=== PATIENT | female | born 1965 | race Caucasian/White ===

== ENCOUNTER → 2019-03-21 08:40 | Outpatient (CLI) | payer BC ==
[~2019-03-21 08:40] MED LIST: ESTRACE 0.5 MG0.5 MG PO; LEVOTHYROXINE75 MCG PO; MELATONIN10 M1 PO; RESTORIL15 MG PO; VITAMIN B-12250 MC3 PO; VITAMIN D3400 UNI1 PO; VITAMIN E200 UNI1 PO; XANAX0.25 MG PO; ZYRTEC10 MG PO
[2019-04-01 09:25] VITALS: BMI 23.0
== END | disposition home or self-care (01) ==
LOC: D.HCCARDIO 08:40
PROVIDERS: ATTEND Internal Medicine Cardiovascular Disease
DX: I20.9 Angina pectoris, unspecified (principal)

== ENCOUNTER 2019-04-01 08:25 | Outpatient (CLI) | payer BC ==
[~2019-04-01] VITALS: Ht 165.1 cm; Wt 62.7 kg
--- NOTE | ~2019-04-01 | HEMODYNAMI ---
PATIENT:JANAY RCAFT MEDICAL RECORD: [id number] : 61 LOCATION:D.CAT ADMISSION DATE: 04/01/19 Generatedon:04/01/201910:30 Patient name: JANAY CRAFT Patient #: [id number] SSN: [id number] : 1965 Date of study: 04/01/2019 Page: Of Hemodynamic Procedure Report Patient Data Patient Demographics Procedure consent was obtained First Name: JANAY Gender: Female Last Name: VENANCIO : 1965 Patient #: [id number] Age: 54 year(s) Race: SSN: [id number] Additional ID: [id number] Contact details [address]: [address] [place] [address] State: [place] City: [place] Zip code: [address] Past Medical History Allergies: No known allergies Admission Admission Data Admission Date: 04/01/2019 Admission Time: 8:25 Arrival Date: 04/01/2019 Arrival Time: 0:00 Insurance Payor: Private health insurance [facility] #: [id number] Height (in.): 64.96 BSA: 1.69 (m2) Height (cm.): 165 BMI: 23.14 (kg/m2) Weight (lbs.): 138.89 Weight (kg.): 63 Lab Results Lab Result Date: 04/01/2019 Lab Result Time: 0:00 Biochemistry Name Units Result Min Max BUN mg/dl 13 --(--*-)-- 7 18 Creatinine mg/dl 0.9 --(-*--)-- 0.6 1.3 eGFR ml/min 69 *-(----)-- 90 120 NONAFRICAN CBC Name Units Result Min Max Hemoglobin g/dl 13.4 -*(----)-- 13.5 17.5 Procedure Procedure Types Cath Procedure Diagnostic Procedure LHC LHC w/Coronaries Procedure Description Procedure Date Procedure Date: 04/01/2019 Procedure Start Time: 10:20 Procedure End Time: 10:28 Procedure Staff Name Function Allen Meek MD Performing Physician Sapphire Vasquez RT Monitor Leilani Wilder RT Monitor Aleksandra Hu RN Nurse Olivia Mcclure RT Scrub Indication Angina Procedure Data Cath Procedure Fluoroscopy Diagnostic fluoroscopy Total fluoroscopy Time: 1 time: 1 min min Diagnostic fluoroscopy Total fluoroscopy dose: 137 dose: 137 mGy mGy Contrast Material Contrast Material Type Amount (ml) Isovue 300 33 Entry Location Entry Primary Successful Side Size Upsize Upsize Entry Closure Root ccessful Closure Location (Fr) 1 (Fr) 2 (Fr) Remarks Device Remarks Radial Right 6 Fr Mechanical artery Short Compression Estimated blood loss: 5 ml Diagnostic catheters Device Type Used For End Catheter Placement DIAGNOSTIC [place] 110cm 5 Procedure Fr catheter ([id number]) Procedure Complications No complications Procedure Medications Medication Administration Route Dosage Oxygen etCO2 Nasal cannula 2 l/min Lidocaine 2% added to field 20 Heparin Flush Bag added to field 2 bags (1000units/500ml NS) 0.9% NaCl I.V. 100 ml/hr Versed I.V. 2 mg Fentanyl I.V. 100 mcg Radial Cocktail I.A. 1 syringe (Verapamil 2mg/Nitro 400mcg/Heparin 1500units) Versed I.V. 1 mg Versed I.V. 1 mg Fentanyl I.V. 50 mcg Fentanyl I.V. 50 mcg Hemodynamics Rest BSA: 1.69 (m2) HGB: 13.4 (g/dl) O2 Consumption: Estimated: 174.03 (ml/min) O2 Co nsumption indexed: Estimated:102.98 (ml/min/m) Heart Rate: 89 (bpm) Snapshots Pre Cath Intra NCS Post Cath Vital Signs Time Heart Resp SPO2 etCO2 NIBP (mmHg) Rhythm Pain Status Sedation Rate (ipm) (%) (mmHg) Level (bpm) 9:56:00 70 16 98 0 123/80(109) NSR 4 (11) , 10(A) Distressing 10:00:12 78 18 100 39.8 120/69(109) NSR 4 (11) , 10(A) Distressing 10:04:20 85 15 95 0.7 109/75(93) NSR 4 (11) , 10(A) Distressing 10:08:25 85 14 96 26.2 113/69(89) NSR 4 (11) , 10(A) Distressing 10:12:35 81 19 96 44.3 119/63(84) NSR 4 (11) , 10(A) Distressing 10:16:47 82 18 97 3 106/60(80) NSR 0 (11) , No 10(A) pain 10:20:55 81 14 96 46.6 102/60(82) NSR 0 (11) , No 9(A) pain 10:25:03 86 14 96 2.2 98/57(74) NSR 0 (11) , No 9(A) pain 10:28:50 79 16 96 46.6 96/53(71) NSR 0 (11) , No 10(A) pain Medications Time Medication Route Dose Verified Delivered Reason Notes Effectiveness by by 9:59:13 Oxygen etCO2 2 l/min [place] used for Nasal Gaviota Hu RN procedure cannula 9:59:19 Lidocaine 2% added 20ml [place] for local to vial Gaviota Meek MD anesthetic field 9:59:25 Heparin Flush added 2 bags [place] used for Bag to Gaviota Meek MD procedure (1000units/500ml field NS) 9:59:34 0.9% NaCl I.V. 100 [place] Per ml/hr Gaviota Hu RN physician 10:15:55 Versed I.V. 2 mg [place] for sedation Gaviota Hu RN 10:15:59 Fentanyl I.V. 100 mcg [place] for sedation Gaviota Hu RN 10:18:01 Versed I.V. 1 mg [place] for sedation Gaviota Meek MD 10:18:06 Fentanyl I.V. 50 mcg [place] for sedation Gaviota Meek MD 10:22:37 Radial Cocktail I.A. 1 [place] for (Verapamil syringe Gaviota Meek MD vasodilation 2mg/Nitro 400mcg/Heparin 1500units) 10:23:01 Versed I.V. 1 mg [place] for sedation Gaviota Meek MD 10:23:07 Fentanyl I.V. 50 mcg [place] for sedation Gaviota Meek MD Procedure Log Time Note 9:41:54 Procedure Status Elective Heart Cath (OP). 9:42:02 Aleksandra Hu RN sent for patient. Start room use. 9:42:06 Time tracking: Regular hours (M-F 7:00 - 5:00) 9:42:14 Plan of Care:Hemodynamics will remain stable., Cardiac rhythm will remain stable., Comfort level will be maintained., Respiratory function will remain adequate., Patient/ family verbilizes understanding of procedure., Procedure tolerated without complication., Recovers from procedure without complications.. 9:44:28 ACC Patient presents with Stable Angina CCS Anginal Class 0--No symptoms, no angina. 9:49:18 Patient received from Pre/Post Procedure Room to CCL 1 Alert and oriented. Tansferred to table in Supine position. 9:50:47 Signed procedure consent form obtained from patient. 9:50:49 Warm blankets applied, and nagi hugger turned on for patient comfort. 9:50:51 Correct patient and procedure confirmed by team. 9:50:52 ECG and BP/O2 sat monitors applied to patient. 9:51:38 Diagnostic Cath Status : Elective 9:51:55 Indication : Angina 9:52:54 Arrival Date: 04/01/2019 12:00:00 AM 9:53:18 Insurance Payor : Private health insurance 9:53:23 Patient Height : 64.96 inches 9:53:28 Patient Weight : 138.89 lbs 9:54:26 Lab Result : eGFR NONAFRICAN 69 ml/min 9:54:26 Lab Result : Creatinine 0.9 mg/dl 9:54:26 Lab Result : BUN 13 mg/dl 9:54:26 Lab Result : Hemoglobin 13.4 g/dl 9:54:56 Vital chart was started 9:54:57 Baseline sample Acquired. 9:55:09 Rhythm: sinus rhythm 9:55:12 Full Disclosure recording started 9:55:31 H&P Date Dictated: 04/01/2019 H&P Addendum completed by physician on da y of procedure. (MUST COMPLETE FOR ALL OUTPATIENTS), New H&P dictated by physician.. 9:55:33 Pre-procedure instructions explained to patient. 9:55:34 Pre-op teaching completed and patient verbalized understanding. 9:55:41 Family in waiting room. 9:55:46 Patient NPO since Midnight. 9:56:00 Patient pain scale 4/10 ?. 9:56:13 IV patent on arrival in right antecubital with 0.9% NaCl at KVO. 9:56:28 Patient allergic to No known allergies 9:56:33 Is the patient allergic to Iodine/contrast media? No. 9:56:42 Is patient on blood thinner?No 9:56:52 Patient diabetic? No. 9:57:02 Patient not . Patient is over age 55. 9:57:04 - 9:57:05 ----Pre-sedation anethsthesia assessment.---- 9:57:10 Previous problem with sedation/anesthesia? No ? 9:57:13 Snore? Yes 9:57:16 Sleep apnea? No 9:57:18 Deviated septum? No 9:57:19 Opens mouth fully? Yes 9:57:21 Sticks out tongue? Yes 9:57:25 Airway obstruction? No ? 9:57:29 Dentures? No ? 9:57:46 Pre procedure: right dorsailis pedis pulse 1+ Palpable, but thready & weak; easily obliterated 9:57:51 Pre procedure: left dorsailis pedis pulse 1+ Palpable, but thready & weak; easily obliterated 9:57:57 Modified To's test Ulnar < 7 seconds 9:58:09 Lab results completed and on chart. 9:58:14 Right Radial & Right Groin area was prepped with chlora-prep and draped in sterile fashion 9:58:17 Alarms reviewed by R. N. 9:58:18 Sharps counted by scrub and verified by R.N. 9:59:13 Oxygen 2 l/min etCO2 Nasal cannula was administered by Aleksandra Hu RN; used for procedure; Verbal order read back and verified. 9:59:19 Lidocaine 2% 20ml vial added to field was administered by Allen Meek MD; for local anesthetic; Verbal order read back and verified. 9:59:25 Heparin Flush Bag (1000units/500ml NS) 2 bags added to field was administered by Allen Meek MD; used for procedure; Verbal order read back and verified. 9:59:34 0.9% NaCl 100 ml/hr I.V. was administered by Aleksandra Hu RN; Per physician; Verbal order read back and verified. 10:00:54 Use device set Radial Dx or PCI 10:00:56 ACIST Syringe (14694) opened to sterile field. 10:00:57 Medline Cath Pack ([id number]) opened to sterile field. 10:00:58 Bag Decanter (2002S) opened to sterile field. 10:00:58 ACIST Hand Control (96322) opened to sterile field. 10:00:59 ACIST Manifold (39299) opened to sterile field. 10:01:00 Tegaderm 4 x 4 (1626W) opened to sterile field. 10:01:02 MBrace Wrist Support ([id number]) opened to sterile field. 10:01:04 EMERALD Guide Wire (734-669) opened to sterile field. 10:01:06 SHEATH 6FR RAIN (2857272) opened to sterile field. 10:05:17 ACCPatient has been prescribed/administered the following anti-anginal medication within the last 2 weeks: None 10:05:27 Baseline sample Acquired. 10:07:43 Zero performed for pressure channel P1 10:15:21 Physician arrived 10:15:22 --------ALL STOP TIME OUT------ 10:15:23 Final Timeout: patient, procedure, and site verified with staff and physician. All members of the team are in agreement. 10:15:27 Right Radial & Right Groin site verified by team. 10:15:33 Fire Safety Assessment: A--An alcohol-based skin anteseptic being used preoperatively., C--Open oxygen or nitrous oxide is being used., D--An ESU, laser, or fiber-optic light is being used. 10:15:40 Physical assessment completed. ASA score P 2 - A patient with mild systemic disease as per Allen Meek MD. 10:15:51 2) 60-89 Mildly reduced kidney function, and other findings (as for stage 1) point to kidney disease. 10:15:55 Versed 2 mg I.V. was administered by Aleksandra Hu RN; for sedation; Verbal order read back and verified. 10:15:59 Fentanyl 100 mcg I.V. was administered by Aleksandra Hu RN; for sedation; Verbal order read back and verified. 10:15:59 Maximum allowable contrast dose (3.7 X eGFR X 0.75)191 ml. 10:16:05 Sedation plan: IV Moderate Sedation Medication:Versed, Fentanyl 10:18:01 Versed 1 mg I.V. was administered by Allen Meek MD; for sedation; Verbal order read back and verified. 10:18:06 Fentanyl 50 mcg I.V. was administered by Allen Meek MD; for sedation ; Verbal order read back and verified. 10:20:00 Zero performed for pressure channel P1 10:20:13 Procedure started. 10::22 Local anesthetic to right radial artery with Lidocaine 2% by Allen Meek MD.INITIAL ACCESS ONLY 10:21:18 A 6 Fr Short sheath was inserted into the Right Radial artery 10:21:31 A DIAGNOSTIC [place] 110cm 5 Fr catheter (997308) was advanced over the wire and used for Procedure. 10:22:37 Radial Cocktail (Verapamil 2mg/Nitro 400mcg/Heparin 1500units) 1 syring e I.A. was administered by Allne Meek MD; for vasodilation; Verbal order read back and verified. 10:22:40 LV gram done using LENNON 10::45 Injector settings: Ml/sec: 5, Volume: 15, 10:23:01 Versed 1 mg I.V. was administered by Allen Meek MD; for sedation; Verbal order read back and verified. 10:23:04 EF : 55 % 10:23:07 Fentanyl 50 mcg I.V. was administered by Allen Meek MD; for sedation ; Verbal order read back and verified. 10:23:08 LCA angiography performed. 10:24:04 RCA angiography performed. 10:24:13 Injector settings: Ml/sec: 3, Volume: 6, 10:24:32 ACCDominant side:Right 10:24:43 Catheter removed. 10:24:46 ZEPHYR REGULAR TR BAND (651185) opened to sterile field. 10::59 Procedure ended.(Physican Out) 10:25:14 Sheath removed intact; hemostasis achieved with Mechanical Compression to the Right Radial artery. :: Fluoroscopy time 01.00 minutes. ::32 Fluoroscopy dose: 137 mGy 10:25:32 Flurop Dose total: 137 10:25:41 Dose Area Product 7075 mGy/cm. 10:25:47 Contrast amount:Isovue 300 33ml. 10:25:50 Maximum allowable dose exceeded? No. 10:25:52 Sharps counted by scrub and verified by R.N. 10:26:00 [place] band inflated with 5cc of air. 10:26:03 Insertion/operative site no bleeding no hematoma. 10:26:08 Post Procedure Pulses reassessed and unchanged 10:26:14 Post-procedure physical assessment completed. ASA score P 2 - A patient with mild systemic disease as per Allen Meek MD. 10:26:18 Post procedure rhythm: unchanged. 10:26:23 Estimated blood loss: 5 ml 10:26:26 Post procedure instruction explained to patient.Patient verbalizes understanding. 10:26:27 Patient needs reinforcement of post procedure teaching. 10:27:28 Procedure and supply charges have been captured, reviewed, submitted an d are correct. 10:28:14 Procedure Complication : No complications 10:28:17 Vital chart was stopped 10:28:21 [facility] Findings: mild to moderate CAD (<70%) 10:28:46 Operative report dictated upon procedure completion. 10:28:47 See physician's report for complete and final results. 10:28:49 Report given to Pre/Post Procedure Room. 10:28:54 Patient transfered to Pre/Post Procedure Room with Stretcher. 10:28:57 Procedure ended. 10:28:57 Full Disclosure recording stopped 10:29:02 End room use (Document Last) Device Usage Item Name Manufacture Quantity Catalog Hospital Part Current [facility] l Lot# / Number Charge Number Stock Stock Serial# Code ACIST Acist 1 49080 [id number] [id number] 238138 20 Syringe Medical (20621) Systems Inc Medline Medline 1 [id number] 71587 183266 5 Cath Pack ([id number]) Bag Microtek 1 [id number] 56034 281882 5 Decanter Medical Inc. () ACIST Hand Acist 1 75805 661267 627362 458038 5 Control Medical (26274) Systems Inc ACIST Acist 1 81441 866020 382172 274160 5 Manifold Medical (20871) Systems Inc Tegaderm 4 3M 1 1626W 216806 027937 639658 5 x 4 (1626W) MBrace Advanced 1 [id number] 529232 07977 004709 5 Wrist Vascular Support Dynamics ([id number]) EMERALD Cardinal 1 502-455 770313 600998 021255 5 Guide Wire Health (502455) SHEATH 6FR Cardinal 1 [id number] 604883 7133707 944155 5 RAIN Health (4178057) DIAGNOSTIC Terumo 1 40-8563 126485 049399 431026 5 [place] 110cm 5 Fr catheter (035653) ZEPHYR Cardinal 1 698742 459999 6926369 494936 5 REGULAR TR Health BAND (486406) Signature Audit [place] Stage Time Signature Unsigned Intra-Procedure 04/01/2019 Leilani 10:29:28 AM Meño RT(R) (CV) Intra-Procedure 04/01/2019 Aleksandra Hu RN 10:29:55 AM Intra-Procedure 04/01/2019 Allen Meek 10:30:34 AM [id number] [place] [address]
[2019-04-01] MEDS ORDERED: LEVOTHYROXINE75 MCG PO (08:43)
[2019-04-01] MEDS ORDERED: XANAX0.25 MG PO (08:43)
[2019-04-01] MEDS ORDERED: VITAMIN D3400 UNI1 PO (08:44)
[2019-04-01] MEDS ORDERED: ZYRTEC10 MG PO (08:44)
[2019-04-01] MEDS ORDERED: VITAMIN E200 UNI1 PO (08:44)
[2019-04-01] MEDS ORDERED: ESTRACE 0.5 MG0.5 MG PO (08:45)
[2019-04-01] MEDS ORDERED: VITAMIN B-12250 MC3 PO (08:45)
[2019-04-01] MEDS ORDERED: MELATONIN10 M1 PO (08:45)
[2019-04-01] MEDS ORDERED: RESTORIL15 MG PO (08:46)
[2019-04-01 09:17] LABS: BASOPHILS 0.7 % (0-2); EOSINOPHILS 3.4 % (0-7); HEMATOCRIT 40.8 % (36.0-48.0); HEMOGLOBIN 13.4 g/dL (12-16); IMMATURE GRANULOCYTES 0.3 % (0-5); LYMPHOCYTES 21.9 % (15-50); MCH 28.8 pg (26.0-34.0); MCHC 32.8 g/dL (31.0-37.0); MCV 87.7 fL (80.0-100.0); MEAN PLATELET VOLUME 10.1 fL (7.4-10.4); MONOCYTES 8.9 % (2-11); NEUTROPHILS 64.8 % (40-80); PLATELET COUNT 231 10x3/uL (130-400); RBC 4.65 10x6/uL (4.00-5.40); WBC 5.8 10x3/uL (4.8-10.8)
[2019-04-01 09:25] VITALS: BP 117/73; Ht 165.1 cm; Wt 62.7 kg
[2019-04-01 09:31] LABS: ANION GAP 9.8 mmol/L (8-16); CALCIUM 9.2 mg/dL (8.5-10.1); CHOL - HDL RATIO 3.1 ratio (2.3-4.1); CREATININE - SERUM 0.9 mg/dL (0.6-1.3); LDL-HDL RATIO 1.9 ratio (1.5-3.5); POTASSIUM - SERUM 3.8 mmol/L (3.5-5.1)
--- NOTE | 2019-04-01 10:54 | NUR ---
PT SLEEPING INTERMITTENTLY, HAS RICKY SIPS OF SODA WITH NO C/O NAUSEA. Z BAND IS CDI TO RIGHT WRIST, HAND IS WARM AND CAP REFILL IS BRISK. WRIST IMMOBILIZER IN PLACE. PT DROWSY, DENIES ANY C/O CHEST PAIN. NO FAMILY AT BEDSIDE. BED IS LOCKED AND LOW, SIDE RAILS UP X2 AND CALL LIGHT IN REACH.
--- NOTE | 2019-04-01 11:02 | NUR ---
PT SLEEPING, AWAKENS EASILY TO VERBAL STIMULI. Z BAND IS CDI TO RIGHT WRIST, NO BLEEDING OR HEMATOMA NOTED TO SITE. WRIST IMMOBILIZER IN PLACE. HAND IS WARM, PULSES PALPABLE. PT DENIES NV DEFICIT TO HAND. RICKY SIPS OF PO FLUIDS. AT BEDSIDE.
--- NOTE | 2019-04-01 11:10 | OP ---
PATIENT NAME: JANAY CRAFT MEDICAL RECORD: [id number] :61 LOCATION:D.CAT ADMISSION DATE: SURGEON: PETRA NAYLOR MD DATE OF OPERATION: 04/01/2019 PROCEDURES: 1. Left heart catheterization. 2. Selective coronary angiography. 3. Left ventriculogram. INDICATION: Angina, abnormal nuclear stress test. PROCEDURE IN DETAIL: After informed consent was obtained and after a detailed description of risks, benefits as well as alternative therapies, the patient elected to proceed with angiogram and heart catheterization. The right radial area was prepped and draped in normal sterile fashion. Right radial artery was cannulated via modified Seldinger technique with placement of 5-Persian sheath. All catheters exchanged through this sheath. FINDINGS: Left ventriculogram was performed in standard 30-degree LENNON view, reveals good cardiac wall motion, ejection fraction is 60%. SELECTIVE CORONARY ANGIOGRAPHY: Left main, left anterior descending, left circumflex, right coronary artery are all smooth-walled vessels with no angiographic evidence of coronary artery disease. OVERALL IMPRESSION: 1. No angiographic evidence of coronary artery disease. 2. Normal left heart pressures. 3. Normal left ventricular systolic function. Chest pain is noncardiac in etiology. No further cardiac workup needs to be ascertained. TRANSINT:[id number] Voice Confirmation ID: [id number] DOCUMENT ID: [id number] PETRA NAYLOR MD at 1110 CC: [id number] DICTATION DATE: 04/01/19 1029 INJECTION MOLDING MACHINE OPERATOR: 04/01/19 1035 [address] [place] [address]
--- NOTE | 2019-04-01 11:15 | NUR ---
DR NAYLOR HAS ROUNDED ON PT
--- NOTE | 2019-04-01 11:47 | NUR ---
1140 ATTEMPTED REMOVAL OF 2 CC OF AIR FROM Z BAND WITH BLEEDING NOTED, AIR REINSTILLED AND OOZING STOPPED. FINGERS WARM AND CAP REFILL IS BRISK.
--- NOTE | 2019-04-01 12:11 | NUR ---
2 cc OF AIR WEANED FROM Z BAND WITH NO BLEEDING NOTED. FINGERS WARM AND CAP REFILL IS BRISK. PT IS ALERT AND DENIES ANY C/O. NSR, RATE IS 70, BP IS 100/59. PT SITTING UP IN BED, VISITING WITH IN THE ROOM.
--- NOTE | 2019-04-01 12:22 | NUR ---
2 CC OF AIR WEANED FROM Z BAND WITH NO BLEEDING NOTED. FINGER WARM AND CAP REFILL IS BRISK. VSS, AT BEDSIDE.
--- NOTE | 2019-04-01 12:56 | NUR ---
1245 ALL AIR HAS BEEN WEANED FROM Z BAND WITH NO BLEEDING NOTED. FINGERS WARM, CAP REFILL IS BRISK. PT DENIES ANY NV DEFICIT TO HAND. VSS.
--- NOTE | 2019-04-01 13:20 | NUR ---
DC INSTRUCTIONS HAVE BEEN REVIEWED WITH PT AND WHO VERBALIZE UNDERSTANDING. PT DRESSING FOR DC TO HOME. 2X2 AND TEGADERM REMAIN CDI RIGHT WRIST, PULSES PALPABLE, PT DENIES ANY NV DEFICIT TO HAND.
--- NOTE | 2019-04-01 13:46 | NUR ---
1340 DRESSING REMAINS CDI TO RIGHT WRIST, NO BLEEDING NOTED AT SITE. WRIST IMMOBILIZER IN PLACE, FINGERS WARM, PULSES PALPABLE, PT DENIES ANY NV DEFICIT. PT HAS DRESSED FOR DC TO HOME. PT ALERT AND DENIES ANY C/O. PT ESCORTED TO PRIVATE AUTO VIA WC BY NURSE WITH DRIVING HER HOME. PT HAS ALL PERSONAL BELONGINGS AND DC INSTRUCTIONS AT TIME OF DISCHARGE.
== END 2019-04-01 13:40 | disposition home or self-care (01) ==
LOC: D.CATH 08:25
PROVIDERS: ATTEND Internal Medicine Interventional Cardiology
DX: R07.89 Other chest pain (principal); R94.30 Abnormal result of cardiovascular function study, unspecified